=== PATIENT | female | born 1970 | race Caucasian/White ===

== ENCOUNTER → 2024-08-08 06:30 | Outpatient (REF) | payer BC, SELFPAY | LOC: HWWDC 06:30 | PROVIDERS: ATTENDING PHYSICIAN Nurse Practitioner Family | DX: Z12.31 Encounter for screening mammogram for malignant neoplasm of breast (principal) | CPT/HCPCS: 77063; 77067 ==

== ENCOUNTER → 2024-08-23 13:33 | Outpatient (REF) | payer BC, SELFPAY | LOC: RAD 13:33 | PROVIDERS: ATTENDING PHYSICIAN Internal Medicine Gastroenterology; REFERRING PHYSICIAN Nurse Practitioner Family | DX: C18.9 Malignant neoplasm of colon, unspecified (principal) | CPT/HCPCS: 71260; 74177; Q9967 ==

== ENCOUNTER → 2024-08-27 16:46 | Outpatient (REF) | payer SELFPAY | LOC: CLAB 16:46 | PROVIDERS: ATTENDING PHYSICIAN Surgery | DX: C18.9 Malignant neoplasm of colon, unspecified (principal) | CPT/HCPCS: 88305 ==

== ENCOUNTER 2024-08-29 06:18 | Day surgery (SDC) | payer BC, SELFPAY ==
[2024-08-29 07:33] LABS: Glucose - Point of Care 127 mg/dl (70-99)
== END 2024-08-29 09:01 | disposition home or self-care (01) ==
LOC: GI 06:18
PROVIDERS: ATTENDING PHYSICIAN Surgery
DX: Z01.818 Encounter for other preprocedural examination (principal); C18.7 Malignant neoplasm of sigmoid colon; C18.6 Malignant neoplasm of descending colon; K56.691 Other complete intestinal obstruction
CPT/HCPCS: 45330; 82962

== ENCOUNTER 2024-08-30 06:06 | Inpatient (IN) | payer BC, SELFPAY ==
[2024-08-16 10:50] LABS: Hematocrit 35.6 % (37.0-47.0); Hemoglobin 11.6 g/dL (12.0-16.0); Mean Corp Hgb Conc. 32.6 g/dL (33.0-37.0); Mean Corpuscular Hgb 27.2 pg (27.0-31.0); Mean Corpuscular Volume 83.4 fL (81.0-99.0); Platelet Count 274 10^3/uL (130-400); Red Blood Cell Count 4.27 10^6/uL (4.20-5.40); White Blood Cell Count 7.2 10^3/uL (4.8-10.8)
[2024-08-16 11:00] LABS: INR 0.93
[2024-08-16 11:02] LABS: APTT 27.2 Sec (23.4-35.0)
[2024-08-16 11:34] LABS: ALT (SGPT) 17 U/L (0-35); AST (SGOT) 31 U/L (14-36); Albumin 4.6 g/dl (3.5-5.0); Alkaline Phosphatase 128 U/L (38-126); Blood Urea Nitrogen 11 mg/dl (7-17); Calcium 9.2 mg/dl (8.4-10.2); Carbon Dioxide 24 mmol/L (22-30); Chloride 102 mmol/L (98-107); Glucose 152 mg/dl (70-99); Potassium 4.5 mmol/L (3.5-5.1); Sodium 139 mmol/L (135-145); Total Bilirubin 1.1 mg/dl (0.2-1.3); Total Protein 7.4 g/dl (6.3-8.2); eGFR > 60.00
[2024-08-16 11:44] LABS: Glycohemoglobin (HgbA1c) 7.7 % (4.0-5.6)
[2024-08-16 13:18] LABS: CEA 7450 ng/ml
[2024-08-16 13:40] VITALS: BMI 21.8
[2024-08-30] VITALS (14 sets, daily range): BP systolic 96–133; BP diastolic 56–81; BMI 21.8
[2024-08-30 07:05] LABS: Glucose - Point of Care 112 mg/dl (70-99)
[2024-08-30] MEDS: NEURONTIN 600 MG PO (07:07)
[2024-08-30] MEDS: TYLENOL 1000 MG PO (07:07)
[2024-08-30] MEDS: NORMOSOL-R/PLASMALYTE-A 1000 IV ×2 (07:08→15:47)
[2024-08-30] MEDS: ENTEREG 12 MG PO (07:08)
[2024-08-30] MEDS: HEPARIN 5000 UNITS SC (07:09)
--- NOTE | 2024-08-30 12:27 | W.OR.COLCA ---
Addendum entered and electronically signed by Toby Walker MD 08/30/24 17:27:
Correction: below I said Splenic Flexure Resection: Middle and ascending left colic ('left colectomy' with resection of distal descending and descending colon with associated vessels).
This should be changed to: Splenic Flexure Resection: Middle and ascending left colic ('left colectomy' with resection of distal transverse and descending colon with associated vessels)
Original Note:
Colon Cancer Post Op Note
Immediate Post Op
Primary Surgeon: Brynn Walker MD
Assisting Surgeon: JANINE De Oliveira
Pre-op Diagnosis: proximal sigmoid/distal descending colon cancer
Post-op Diagnosis: splenic flexure colon cancer
Procedure Performed: 1) robotic left colectomy 2) takedown splenic flexure
Anesthesia Type: general plus local
Specimen / Cultures: left colon (including distal transverse and descending colon) including tumor with tattoo distal to tumor
Estimated Blood Loss: 150 cc
Complications: no immediate
Operative Findings: 1) large splenic flexure tumor with distal tattooing 2) liver metastases not visible
Colon Resection
Colon Resection
Operation performed with curative intent: No
Tumor Location: Splenic Flexure
Splenic Flexure Resection: Middle and ascending left colic ('left colectomy' with resection of distal descending and descending colon with associated vessels)
[2024-08-30 12:41] LABS: Glucose - Point of Care 173 mg/dl (70-99)
--- NOTE | 2024-08-30 12:46 | W.PN.UPDATE ---
Update Note
Progress Note Update
This is an addendum to consult dictated by Keesha Hernandez on 08/30/2024.
I saw and examined the patient.
The [employer] ATTENDANT or PA's note was reviewed and I agree with the note.
Comment:
Patient 54-year-old female with history of hypertension, hyperlipidemia, diabetes mellitus, came in for elective robotic left colectomy. She is alert but coming out of anesthesia a bit sleepy. Denies any chest pain or shortness of breath. Denies
nausea or vomiting. We were asked to see her in consultation for her medical problems including hypertension hyperlipidemia diabetes mellitus management. She denies any polyuria polyphagia polydipsia. She was referred to hospital service for
evaluation.
Physical exam:
Respiratory: Clear to Auscultation; Negative Wheezes, Rales or Rhonchi
Cardiac: Regular Rhythm and S1/S2
GI: Soft, Nontender and Nondistended
Neuro: Awake, Alert and Oriented
A/P:
Colon mass status post left robotic colectomy/hypertension/diabetes mellitus/hyperlipidemia--> resume home medication, monitor blood pressure, monitor blood sugars. Appreciate the opportunity of asking to be involved in the care of this patient.
[2024-08-30 13:14] LABS: Blood Urea Nitrogen 13 mg/dl (7-17); Calcium 8.1 mg/dl (8.4-10.2); Carbon Dioxide 23 mmol/L (22-30); Chloride 99 mmol/L (98-107); Estimated Creatinine Clearance 102 ml/min; Glucose 179 mg/dl (70-99); Magnesium 2.1 mg/dl (1.6-2.3); Potassium 4.1 mmol/L (3.5-5.1); Sodium 134 mmol/L (135-145); eGFR > 60.00
--- NOTE | 2024-08-30 13:35 | CON.HOSP ---
Family Physician
-
Family Physician: RUKHSANA Ramachandran
Chief Complaint
-
Splenic flexure tumor status post left colectomy today 08/30/2024
History of Present Illness
54-year-old female status post robotic left colectomy, takedown splenic flexure for large splenic flexure tumor concerning for colon cancer. With distal tattooing. Liver metastases were not visible on robotic procedure per surgery postop note
Aaron.
The patient is currently awake alert oriented with no pain. Her surgical sites across the mid to right side of her abdomen are intact no surrounding erythema or drainage. She is a Barry catheter draining yellow in color. She denies headache,
blurred vision, chest pain, palpitations, shortness of breath, abdominal pain, nausea, vomiting, diarrhea. She has past medical history of hypertension, HLD, DM2.
Medical History
Past Medical History
Past Medical History: Reports Other
Additional Past Medical History:
hypertension, HLD, DM2.
Past Surgical History: Reports Other
Additional Past Surgical History:
Status post left robotic colectomy 08/30/2024 for splenic flexure tumor
Social History
Tobacco: Non-smoker
Alcohol: None
Drug: None
Personal: Single
Living: Alone
Family History
Family History: Reviewed & Not Pertinent
Allergies / Home Medications
Allergies reflects when Allergies were last updated in [facility].
Home Medications with original date entered in [facility]
Allergy/Medication List:
Allergies
Allergy/AdvReac Type Severity Reaction Status Date / Time
No Known Allergies Allergy Unverified 08/30/24 06:46
Home Medications
acetaminophen 325 mg tablet (Tylenol) 650 mg PO QID PRN pain 08/23/24
dulaglutide 1.5 mg/0.5 mL subcutaneous pen injector (Trulicity) 1.5 mg SC QWEEK 08/23/24
empagliflozin 25 mg tablet (Jardiance) 25 mg PO DAILY 08/23/24
metronidazole 500 mg tablet 500 mg PO DIRECTED 08/23/24
neomycin 500 mg tablet 1,000 mg PO DIRECTED 08/23/24
olmesartan 40 mg tablet 40 mg PO DAILY 08/23/24
rosuvastatin 5 mg tablet 5 mg PO DAILY 08/23/24
peg-electrolyte oral solution 240 ml PO Q10M 08/30/24
Review of Systems
-
History Source: Patient
A 12 point Review of Systems was completed except as noted: Yes
Constitutional: Denies Fever or Chills
EENT: Denies Sore Throat or Runny Nose
Respiratory: Denies Cough or Trouble Breathing
Cardiac: Denies Chest Pain, Diaphoresis, Palpitations or Syncope
Abdomen/GI: Denies Abdominal Pain, Nausea, Vomiting, Diarrhea, Constipated or Bloody Stools
: Reports Barry
Musculoskeletal: Denies Joint Pain or Edema
Skin: Denies Itching or Rash
Neurological: Denies Dizzy, Headache or Weakness
Endocrine: Reports No Symptoms
Hematologic/Lymphatic: Reports No Symptoms
Psych: Reports Calm
Physical Exam
Vital Signs
Vital Signs
Temp Pulse Resp BP Pulse Ox
98.3 F 88 18 118/74 97
08/30/24 12:33 08/30/24 13:30 08/30/24 13:30 08/30/24 13:30 08/30/24 13:30
Physical Exam
General: Comfortable; Negative Pain
HEENT: Normocephalic, Anicteric, Moist Mucous Membranes and PERRLA
Respiratory: Clear; Negative Wheezes, Rales or Rhonchi
Cardiac: S1/S2 and Regular Rhythm; Negative Murmur, Rub, Peripheral Edema or Calf Tenderness
Breast: Deferred by me
GI: Soft, Normal Bowel Sounds, Distended (Slight status post left robotic colectomy) and Other (Multiple robotic surgical incisions mid abdomen to the right intact with Dermabond on each 1 no surrounding erythema or drainage)
Genito-urinary: Barry Catheter (Draining yellow in color)
Musculoskeletal: No Clubbing, No Cyanosis and No Edema
Skin: Warm and Dry; Negative Rash
Neuro: AO x 3 and No Motor Deficits; Negative Slurred Speech, Facial Droop, Tremors or Sedated
Psych: Calm
Laboratory Results
-
Laboratory Results
08/30/24 12:44
PT 13.0 Sec (11.4-14.6) 08/16/24 08:48
INR 0.93 08/16/24 08:48
APTT 27.2 Sec (23.4-35.0) 08/16/24 08:48
Total Bilirubin 1.1 mg/dl (0.2-1.3) 08/16/24 08:48
AST 31 U/L (14-36) 08/16/24 08:48
ALT 17 U/L (0-35) 08/16/24 08:48
Alkaline Phosphatase 128 U/L (38-126) H 08/16/24 08:48
Data Reviewed
-
Lab Data: Labs Reviewed
Impression / Plan
-
Medical consultation
inpatient MedSurg
#Large splenic fracture tumor with possible mets to liver
Patient status post left robotic colectomy with takedown splenic flexure by Dr. Walker
-Continue IV fluids
-Continue pain control regimen with IV Dilaudid, IV Toradol, IV Protonix, IV Zofran
-Clear liquid diet
-Follow CBC, CMP
#DM2
Accu-Cheks with SSI, check HgbA1c
-cont Jardiance 25 mg daily
-Patient on Trulicity 1.5 mg last dose July 29
#HTN�benign
-Continue olmesartan 40 mg daily patient has not taken since 08/27/2024
#HLD
-Continue Crestor 5 mg daily
DVT prophylaxis
Subcutaneous heparin
Full code patient's Sister Belinda Linares is her emergency contact patient does have 1 daughter
[2024-08-30 13:49] LABS: Hematocrit 31.9 % (37.0-47.0); Hemoglobin 10.2 g/dL (12.0-16.0); Mean Corpuscular Hgb 26.8 pg (27.0-31.0); Mean Corpuscular Volume 83.9 fL (81.0-99.0); Mean Platelet Volume 8.9 fL (7.4-10.4); Platelet Count 279 10^3/uL (130-400); Red Cell Dist. Width 13.8 % (11.5-14.5); White Blood Cell Count 9.9 10^3/uL (4.8-10.8)
[2024-08-30] MEDS: TORADOL 10 MG IV ×2 (14:27→19:52)
[2024-08-30 14:43] LABS: % Basophils 0.3 % (0-2); % Eosinophils 0.2 % (0-6); % Immature Granulocytes 0.6 % (0-0.5); % Lymphocytes 6.5 % (20.5-51.1); % Monocytes 1.7 % (1.7-9.3); % Neutrophils 90.7 % (42.2-75.2); Absolute Immature Granulocytes 0.1 10^3/uL (0-0.05); Absolute Lymphocytes 0.7 10^3/uL (1.2-3.4); Absolute Monocytes 0.2 10^3/uL (0.1-0.6); Nucleated Red Blood Cells % 0 %
[2024-08-30] MEDS: TYLENOL 650 MG PO ×2 (15:53→19:53)
--- NOTE | 2024-08-30 16:30 | PTCARENOTE ---
Patient admitted from PACU post robotic laparoscopic sigmoidectomy secondary to colon cancer.Vital signs are stable.The patient reports her pain at a 1-2 out of 10.All 4 incisions are open to air without drainage.The patient is in her bed with the
call ahumada in reach.Her family members are at the bedside.
[2024-08-30 17:26] LABS: Glucose - Point of Care 214 mg/dl (70-99)
[2024-08-30] MEDS: NOVOLOG FLEXPEN-LOW RESISTANCE 2 UNITS SC (19:50)
[2024-08-30 19:51] LABS: Glucose - Point of Care 207 mg/dl (70-99)
[2024-08-30 22:03] LABS: Glucose - Point of Care 178 mg/dl (70-99)
[2024-08-30] MEDS: TYLENOL PO (23:41)
[2024-08-31] MEDS: TORADOL 10 MG IV ×4 (02:03→19:32)
[2024-08-31] MEDS: NORMOSOL-R/PLASMALYTE-A 1000 IV (02:07)
[2024-08-31 03:52] VITALS: BP 99/55
[2024-08-31] MEDS: TYLENOL PO (05:08)
[2024-08-31 06:00] VITALS: BMI 21.6
[2024-08-31 06:51] VITALS: BP 100/60
[2024-08-31 08:01] LABS: Glucose - Point of Care 125 mg/dl (70-99)
[2024-08-31] MEDS: NOVOLOG FLEXPEN-LOW RESISTANCE SC ×3 (08:26→17:23)
[2024-08-31] MEDS: BENICAR 40 MG PO (08:26)
[2024-08-31] MEDS: FARXIGA 10 MG PO (08:27)
[2024-08-31] MEDS: ENTEREG 12 MG PO ×2 (08:27→19:32)
[2024-08-31] MEDS: TYLENOL 650 MG PO ×4 (08:27→19:32)
[2024-08-31] MEDS: CRESTOR 5 MG PO (08:27)
[2024-08-31] MEDS: PROTONIX 40 MG PO (08:27)
[2024-08-31 08:48] LABS: % Basophils 0.4 % (0-2); % Eosinophils 0.3 % (0-6); % Immature Granulocytes 0.3 % (0-0.5); % Lymphocytes 21.1 % (20.5-51.1); % Monocytes 8.6 % (1.7-9.3); % Neutrophils 69.3 % (42.2-75.2); Absolute Lymphocytes 1.6 10^3/uL (1.2-3.4); Absolute Monocytes 0.7 10^3/uL (0.1-0.6); Absolute Neutrophils 5.4 10^3/uL (1.4-6.5); Hematocrit 26.5 % (37.0-47.0); Hemoglobin 8.8 g/dL (12.0-16.0); Mean Corp Hgb Conc. 33.2 g/dL (33.0-37.0); Mean Corpuscular Hgb 27.3 pg (27.0-31.0); Mean Corpuscular Volume 82.3 fL (81.0-99.0); Mean Platelet Volume 9.8 fL (7.4-10.4); Nucleated Red Blood Cells % 0 %; Platelet Count 225 10^3/uL (130-400); Red Blood Cell Count 3.22 10^6/uL (4.20-5.40); Red Cell Dist. Width 13.8 % (11.5-14.5); White Blood Cell Count 7.7 10^3/uL (4.8-10.8)
--- NOTE | 2024-08-31 09:04 | W.PN.HOSP.TC ---
Today's Communication/Plan
-
Postop care
Assessment / Plan
Assessment / Plan
Physical exam:
General: Well Developed, Well Nourished and No Apparent Distress
HEENT: Normocephalic, Atraumatic and Moist Mucous Membranes
Respiratory: Clear to Auscultation; Negative Wheezes, Rales or Rhonchi
Cardiac: Regular Rhythm and S1/S2
GI: Soft, postop findings, nontender and Nondistended
Musculoskeletal: No Clubbing, No Cyanosis and No Edema
Neuro: Awake, Alert and Oriented
Psych: Calm
A/P:
#Large splenic fracture tumor with possible mets to liver
Patient status post left robotic colectomy with takedown splenic flexure by Dr. Walker
-Planning to stop IV fluids when tolerating diet per surgery
-Continue pain control regimen with IV Dilaudid, IV Toradol, IV Protonix, IV Zofran
-Advance to full liquid diet per colorectal surgeon
-Out of bed, incentive spirometry, Barry catheter out
#Probable acute blood loss postop anemia versus dilutional
Hemoglobin 10.2--> 8.8 today
Plan on repeating hemoglobin later today
Continue to monitor closely
#DM2
Accu-Cheks with SSI, checked HgbA1c 7.7
-cont Jardiance 25 mg daily
-Patient on Trulicity 1.5 mg last dose July 29
#HTN�benign
-Continue olmesartan 40 mg daily patient has not taken since 08/27/2024
#HLD
-Continue Crestor 5 mg daily
DVT prophylaxis
SCDs and considering Lovenox if H&H stable later down the road
CODE STATUS full code
Anticipated Discharge: 24 - 48 hours
Subjective/Interval History
-
Date of Service: August 31, 2024
Patient doing well overall. No chest pain or shortness of breath
Objective Data
-
Labs:
Laboratory Results
08/31/24
08:06
WBC 7.7
Hgb 8.8 L
Hct 26.5 L
Plt Count 225
Sodium Pending
Potassium Pending
Chloride Pending
Carbon Dioxide Pending
BUN Pending
Creatinine Pending
Glucose Pending
Calcium Pending
Vital Signs:
Vital Signs
Temp Pulse Resp BP Pulse Ox
98.6 F 72 16 100/60 98
08/31/24 06:51 08/31/24 06:51 08/31/24 06:51 08/31/24 06:51 08/31/24 06:51
I&O
08/30/24 08/31/24 09/01/24
06:59 06:59 06:59
Intake Total 1919
Output Total 1400 / 1400
Balance 520 / 520
[2024-08-31 09:29] LABS: Blood Urea Nitrogen 12 mg/dl (7-17); Calcium 8.2 mg/dl (8.4-10.2); Carbon Dioxide 26 mmol/L (22-30); Chloride 102 mmol/L (98-107); Estimated Creatinine Clearance 102 ml/min; Glucose 111 mg/dl (70-99); Magnesium 2.3 mg/dl (1.6-2.3); Potassium 3.7 mmol/L (3.5-5.1); Sodium 134 mmol/L (135-145); eGFR > 60.00
--- NOTE | 2024-08-31 09:51 | W.PN.CRS1 ---
Today's Communication / Plan
-
Full liquid diet
DC Barry
Recheck hemoglobin
Assessment/Plan
-
POD#1 1) robotic left colectomy 2) takedown splenic flexure
hgb 8.8 from 10.2, wbc 7.7
-Advance diet to full's
-Discontinue Barry
-Out of bed with physical therapy
-Incentive spirometry every 1 hours while awake
-Or pathology pending
-DC IV fluids when tolerating diet
-Due to anemia, which is likely delusional, will recheck hemoglobin at noon.
-Teds and SCDs for DVT prophylaxis. Possible Lovenox later if H&H is stable.
-Appreciate hospitalist
-Pain control: Tylenol and Toradol standing, Dilaudid as needed
Subjective Data
Procedure
08/30/24- 1) robotic left colectomy 2) takedown splenic flexure
Subjective Data
Date of Service: August 31, 2024
Patient states she feels well. She currently has no complaints. She would like to get a bed. Her pain is controlled. She denies nausea or vomiting. She tolerated clears without difficulty. She does not have flatus yet.
Objective Data
-
Vital Signs
Temp Pulse Resp BP Pulse Ox
98.6 F 72 16 100/60 98
08/31/24 06:51 08/31/24 06:51 08/31/24 06:51 08/31/24 06:51 08/31/24 06:51
Intake & Output
08/30/24 08/31/24 09/01/24
06:59 06:59 06:59
Intake Total 1919 / 192
Output Total 1400 / 1400
Balance 520 / 520
Intake:
Oral fluids 420 / 420
IV fluids (Total) 1500 / 1500
Normosal 300 / 300
Output:
Urine, Barry 1400 / 1400
Lab Results
08/31/24 08:06
Physical Exam
-
General: No Acute Distress and AOx3
Abdomen: Soft, Non Distended and Non Tender
Skin: Warm and Dry
Incision: Clear, Dry, Intact
[2024-08-31 11:34] VITALS: BP 109/59
[2024-08-31 11:52] LABS: Glucose - Point of Care 96 mg/dl (70-99)
--- NOTE | 2024-08-31 11:56 | CM ---
Initial assessment completed. Came in for elective robotic left colectomy.
Pt reports that she lives alone in a 2nd flr apartment- 10 steps to her apartment. Pt reports she is independent w/ ambulating and ADLs, no DME identified. Pt denies any SNF/VN/PT hx.
Address, point of contact and insurance verified
PCP: Dr. Li Gramajo
Pharmacy: [id number]- [place]
Pt shared her daughter will transport at d/c
Plan: Home; no needs anticipated
CM will cont to follow for d/c needs
[2024-08-31 12:28] LABS: Hematocrit 28.6 % (37.0-47.0); Hemoglobin 9.5 g/dL (12.0-16.0)
[2024-08-31 14:45] VITALS: BP 104/55
[2024-08-31] MEDS: NORMOSOL-R/PLASMALYTE-A IV (14:54)
[2024-08-31 17:22] LABS: Glucose - Point of Care 148 mg/dl (70-99)
[2024-08-31] MEDS: LOVENOX 40 MG SC (17:23)
[2024-08-31 23:57] VITALS: BP 106/60
[2024-09-01] MEDS: TYLENOL PO ×2 (01:38→05:13)
[2024-09-01] MEDS: TORADOL 10 MG IV ×3 (02:13→13:41)
[2024-09-01 06:00] VITALS: BMI 21.5
[2024-09-01 07:30] VITALS: BP 95/55
[2024-09-01 07:33] LABS: Glucose - Point of Care 88 mg/dl (70-99)
[2024-09-01 07:46] LABS: % Basophils 0.5 % (0-2); % Eosinophils 3.4 % (0-6); % Immature Granulocytes 0.3 % (0-0.5); % Lymphocytes 17.8 % (20.5-51.1); % Monocytes 7.4 % (1.7-9.3); % Neutrophils 70.6 % (42.2-75.2); Absolute Eosinophils 0.3 10^3/uL (0-0.7); Absolute Lymphocytes 1.4 10^3/uL (1.2-3.4); Absolute Monocytes 0.6 10^3/uL (0.1-0.6); Absolute Neutrophils 5.5 10^3/uL (1.4-6.5); Hematocrit 26.2 % (37.0-47.0); Hemoglobin 8.6 g/dL (12.0-16.0); Mean Corp Hgb Conc. 32.8 g/dL (33.0-37.0); Mean Corpuscular Hgb 27.2 pg (27.0-31.0); Mean Corpuscular Volume 82.9 fL (81.0-99.0); Mean Platelet Volume 9.9 fL (7.4-10.4); Nucleated Red Blood Cells % 0 %; Platelet Count 210 10^3/uL (130-400); Red Blood Cell Count 3.16 10^6/uL (4.20-5.40); Red Cell Dist. Width 14.1 % (11.5-14.5); White Blood Cell Count 7.8 10^3/uL (4.8-10.8)
[2024-09-01 08:07] LABS: Blood Urea Nitrogen 15 mg/dl (7-17); Calcium 8.5 mg/dl (8.4-10.2); Carbon Dioxide 24 mmol/L (22-30); Chloride 104 mmol/L (98-107); Estimated Creatinine Clearance 102 ml/min; Glucose 84 mg/dl (70-99); Potassium 3.9 mmol/L (3.5-5.1); Sodium 137 mmol/L (135-145); eGFR > 60.00
[2024-09-01] MEDS: NOVOLOG FLEXPEN-LOW RESISTANCE SC ×2 (08:49→12:30)
[2024-09-01] MEDS: CRESTOR 5 MG PO (08:50)
[2024-09-01] MEDS: ENTEREG 12 MG PO (08:50)
[2024-09-01] MEDS: TYLENOL 650 MG PO ×2 (08:51→13:41)
[2024-09-01] MEDS: PROTONIX 40 MG PO (08:56)
[2024-09-01] MEDS: BENICAR 40 MG PO (08:56)
[2024-09-01] MEDS: FARXIGA 10 MG PO (08:56)
--- NOTE | 2024-09-01 09:01 | W.PN.GS2 ---
Today's Communication / Plan
-
Dispo plan
Assessment / Plan
-
This is a 54-year-old female status post robotic left colectomy for colon cancer. Doing well, expected postoperative course.
Will advance to a low residue diet.
Will plan on discharging home today
Time Spent
Total Time Spent with Patient (in minutes): 20
Subjective Data
-
Date of Service: September 01, 2024
Interval Events:
No acute events overnight. Slept well. Pain Controlled. Denies Nausea/Vomiting, +bowel function. Tolerating diet.
Objective Data
-
Intake and Output
08/31/24 09/01/24 09/02/24
06:59 06:59 06:59
Intake Total 1920 / 1920 1120 / 1120
Output Total 1400 / 1400 800 / 800
Balance 520 / 520 320 / 320
Intake:
Oral fluids 420 / 420 480 / 480
IV fluids (Total) 1500 / 1500 640 / 640
Normosal 300 / 300
Output:
Urine, Plascencia 1400 / 1400 800 / 800
Other:
Number of approximated MODERATE 2
amounts of urine
Number of unmeasured liquid
stools
Rectum 2
Vital Signs
Temp Pulse Resp BP Pulse Ox
98.1 F 73 18 95/55 96
09/01/24 07:30 09/01/24 07:30 09/01/24 07:30 09/01/24 07:30 09/01/24 07:30
Lab Results
09/01/24 06:46
09/01/24 06:46
Calcium 8.5 mg/dl (8.4-10.2) 09/01/24 06:46
Magnesium 2.3 mg/dl (1.6-2.3) 08/31/24 08:06
Total Bilirubin 1.1 mg/dl (0.2-1.3) 08/16/24 08:48
AST 31 U/L (14-36) 08/16/24 08:48
ALT 17 U/L (0-35) 08/16/24 08:48
Alkaline Phosphatase 128 U/L (38-126) H 08/16/24 08:48
Total Protein 7.4 g/dl (6.3-8.2) 08/16/24 08:48
Albumin 4.6 g/dl (3.5-5.0) 08/16/24 08:48
Physical Exam
-
GENERAL/NEURO: Awake, Alert, no distress
CHEST: Unlabored breathing on RA
ABDOMEN: Soft, Non-Tender, Non-Distended, incisions clean dry and intact
Patient has a plascencia catheter: No
Patient has a central line: No
--- NOTE | 2024-09-01 09:24 | W.PN.HOSP.TC ---
Today's Communication/Plan
-
Discharge planning
Assessment / Plan
Assessment / Plan
Physical exam:
General: Well Developed, Well Nourished and No Apparent Distress
HEENT: Normocephalic, Atraumatic and Moist Mucous Membranes
Respiratory: Clear to Auscultation; Negative Wheezes, Rales or Rhonchi
Cardiac: Regular Rhythm and S1/S2
GI: Soft, postop findings, nontender and Nondistended
Musculoskeletal: No Clubbing, No Cyanosis and No Edema
Neuro: Awake, Alert and Oriented
Psych: Calm
A/P:
#Large splenic fracture tumor with possible mets to liver
Patient status post left robotic colectomy with takedown splenic flexure by Dr. Walker
-Off IV fluids
-Continue pain control regimen with IV Dilaudid, IV Toradol, IV Protonix, IV Zofran
-Advance to low residue diet per colorectal surgeon
-Out of bed, incentive spirometry, Barry catheter out
-Discharge planning per surgery. Okay to discharge from medical standpoint when cleared by primary.
#Probable acute blood loss postop anemia versus dilutional
Hemoglobin 10.2--> 8.8-->8.6 today
#DM2
Accu-Cheks with SSI, checked HgbA1c 7.7
-cont Jardiance 25 mg daily
-Patient on Trulicity 1.5 mg last dose July 29
#HTN�benign
-Continue olmesartan 40 mg daily patient has not taken since 08/27/2024
#HLD
-Continue Crestor 5 mg daily
DVT prophylaxis
SCDs and Lovenox
CODE STATUS full code
Anticipated Discharge: Today
Subjective/Interval History
-
Date of Service: September 01, 2024
No new complaints
Objective Data
-
Labs:
Laboratory Results
09/01/24
06:46
WBC 7.8
Hgb 8.6 L
Hct 26.2 L
Plt Count 210
Sodium 137
Potassium 3.9
Chloride 104
Carbon Dioxide 24
BUN 15
Creatinine 0.5 L
Glucose 84
Calcium 8.5
Vital Signs:
Vital Signs
Temp Pulse Resp BP Pulse Ox
98.1 F 73 18 95/55 96
09/01/24 07:30 09/01/24 07:30 09/01/24 07:30 09/01/24 07:30 09/01/24 07:30
I&O
08/31/24 09/01/24 09/02/24
06:59 06:59 06:59
Intake Total 1919 / 1919 1120 / 1120
Output Total 1400 / 1400 800 / 800
Balance 520 / 520 320 / 320
[2024-09-01 11:37] LABS: Glucose - Point of Care 91 mg/dl (70-99)
[2024-09-01 14:59] VITALS: BP 137/63
== END 2024-09-01 15:31 | disposition home or self-care (01) | DRG 330 ==
LOC: 2 SOUTH 06:06
PROVIDERS: Physician Assistant; ADMITTING PHYSICIAN Surgery; CONSULT PHYSICIAN Hospitalist; FAMILY PHYSICIAN Nurse Practitioner Family
PROC: 8E0W4CZ Robotic Assisted Procedure of Trunk Region, Percutaneous Endoscopic Approach (ICD-10-PCS; 2024-08-30)
PROC: 0DTG4ZZ Resection of Left Large Intestine, Percutaneous Endoscopic Approach (ICD-10-PCS; 2024-08-30)
DX: C18.5 Malignant neoplasm of splenic flexure (principal); C78.7 Secondary malignant neoplasm of liver and intrahepatic bile duct; D62 Acute posthemorrhagic anemia; C77.2 Secondary and unspecified malignant neoplasm of intra-abdominal lymph nodes; E11.9 Type 2 diabetes mellitus without complications; E78.5 Hyperlipidemia, unspecified; I10 Essential (primary) hypertension
CPT/HCPCS: 88309; 36415; 80048; 80053; 82378; 82962; 83036; 83735; 85014; 85018; 85025; 85027; 85610; 85730; 86850; 86900; 86901; 93005; J1335

== ENCOUNTER 2024-09-19 06:15 | Day surgery (SDC) | payer BC, SELFPAY ==
--- NOTE | 2024-09-17 13:19 | PTCARENOTE ---
Jacquelyn in Dr. Walker's office made aware of Hgb 8.6.
--- NOTE | 2024-09-17 13:26 | PTCARENOTE ---
Dr. Dubose made aware of Hgb 8.6, no further action requested.
[2024-09-19 11:41] VITALS: BMI 21.8
[2024-09-19 11:42] VITALS: BP 109/75; BMI 21.8
[2024-09-19 11:58] LABS: Glucose - Point of Care 169 mg/dl (70-99)
[2024-09-19] MEDS: NORMOSOL-R/PLASMALYTE-A 1000 IV (12:03)
[2024-09-19 14:53] LABS: Glucose - Point of Care 142 mg/dl (70-99)
[2024-09-19 16:17] VITALS: BP 113/61
[2024-09-19 16:30] VITALS: BP 116/61
[2024-09-19 16:45] VITALS: BP 112/64
== END 2024-09-19 17:21 | disposition home or self-care (01) ==
LOC: SDS 06:15
PROVIDERS: ATTENDING PHYSICIAN Surgery
DX: C18.7 Malignant neoplasm of sigmoid colon (principal); C78.7 Secondary malignant neoplasm of liver and intrahepatic bile duct
CPT/HCPCS: 36561; 71045; 76000; 82962; C1788

== ENCOUNTER → 2024-09-24 11:53 | Outpatient (REF) | payer BC, SELFPAY ==
[2024-09-24 11:20] LABS: % Basophils 0.4 % (0-2); % Immature Granulocytes 0.1 % (0-0.5); % Lymphocytes 15.4 % (20.5-51.1); % Monocytes 6.2 % (1.7-9.3); % Neutrophils 74.9 % (42.2-75.2); Absolute Eosinophils 0.2 10^3/uL (0-0.7); Absolute Lymphocytes 1.2 10^3/uL (1.2-3.4); Absolute Monocytes 0.5 10^3/uL (0.1-0.6); Absolute Neutrophils 5.7 10^3/uL (1.4-6.5); Hematocrit 33.5 % (37.0-47.0); Hemoglobin 10.7 g/dL (12.0-16.0); Mean Corp Hgb Conc. 31.9 g/dL (33.0-37.0); Mean Corpuscular Hgb 26.3 pg (27.0-31.0); Mean Corpuscular Volume 82.3 fL (81.0-99.0); Mean Platelet Volume 9.7 fL (7.4-10.4); Platelet Count 329 10^3/uL (130-400); Red Blood Cell Count 4.07 10^6/uL (4.20-5.40); Red Cell Dist. Width 13.8 % (11.5-14.5); White Blood Cell Count 7.6 10^3/uL (4.8-10.8)
[2024-09-24 12:56] LABS: ALT (SGPT) 18 U/L (0-35); AST (SGOT) 31 U/L (14-36); Albumin 4.4 g/dl (3.5-5.0); Alkaline Phosphatase 181 U/L (38-126); Blood Urea Nitrogen 12 mg/dl (7-17); Calcium 9.7 mg/dl (8.4-10.2); Carbon Dioxide 24 mmol/L (22-30); Chloride 103 mmol/L (98-107); Glucose 290 mg/dl (70-99); Potassium 4.6 mmol/L (3.5-5.1); Sodium 142 mmol/L (135-145); Total Bilirubin 0.9 mg/dl (0.2-1.3); Total Protein 7.5 g/dl (6.3-8.2); eGFR > 60.00
== END ==
LOC: OIDL 11:53
PROVIDERS: ATTENDING PHYSICIAN Internal Medicine Hematology & Oncology
DX: C18.7 Malignant neoplasm of sigmoid colon (principal)
CPT/HCPCS: 80053; 85025

== ENCOUNTER → 2024-10-05 09:05 | Outpatient (REF) | payer BC, SELFPAY ==
[2024-10-05 09:09] LABS: % Basophils 0.3 % (0-2); % Immature Granulocytes 0.1 % (0-0.5); % Lymphocytes 16.1 % (20.5-51.1); % Neutrophils 64.5 % (42.2-75.2); Absolute Lymphocytes 1.4 10^3/uL (1.2-3.4); Absolute Monocytes 0.7 10^3/uL (0.1-0.6); Absolute Neutrophils 5.6 10^3/uL (1.4-6.5); Hematocrit 32.3 % (37.0-47.0); Hemoglobin 10.6 g/dL (12.0-16.0); Mean Corp Hgb Conc. 32.8 g/dL (33.0-37.0); Mean Corpuscular Hgb 26.6 pg (27.0-31.0); Mean Corpuscular Volume 81.2 fL (81.0-99.0); Mean Platelet Volume 9.3 fL (7.4-10.4); Platelet Count 290 10^3/uL (130-400); Red Blood Cell Count 3.98 10^6/uL (4.20-5.40); Red Cell Dist. Width 13.4 % (11.5-14.5); White Blood Cell Count 8.7 10^3/uL (4.8-10.8)
== END ==
LOC: OIDL 09:05
PROVIDERS: Internal Medicine Hematology & Oncology
DX: C18.7 Malignant neoplasm of sigmoid colon (principal); C78.7 Secondary malignant neoplasm of liver and intrahepatic bile duct; D50.9 Iron deficiency anemia, unspecified
CPT/HCPCS: 85025

== ENCOUNTER → 2024-10-15 09:36 | Outpatient (REF) | payer BC, SELFPAY ==
[2024-10-15 09:42] LABS: % Basophils 1.2 % (0-2); % Eosinophils 3.5 % (0-6); % Immature Granulocytes 0.3 % (0-0.5); % Lymphocytes 19.2 % (20.5-51.1); % Monocytes 10.4 % (1.7-9.3); % Neutrophils 65.4 % (42.2-75.2); Absolute Basophils 0.1 10^3/uL (0-0.2); Absolute Eosinophils 0.2 10^3/uL (0-0.7); Absolute Lymphocytes 1.1 10^3/uL (1.2-3.4); Absolute Monocytes 0.6 10^3/uL (0.1-0.6); Absolute Neutrophils 3.8 10^3/uL (1.4-6.5); Hematocrit 36.2 % (37.0-47.0); Hemoglobin 12.1 g/dL (12.0-16.0); Mean Corp Hgb Conc. 33.4 g/dL (33.0-37.0); Mean Corpuscular Hgb 27.7 pg (27.0-31.0); Mean Corpuscular Volume 82.8 fL (81.0-99.0); Mean Platelet Volume 9.3 fL (7.4-10.4); Platelet Count 223 10^3/uL (130-400); Red Blood Cell Count 4.37 10^6/uL (4.20-5.40); Red Cell Dist. Width 17.8 % (11.5-14.5); White Blood Cell Count 5.8 10^3/uL (4.8-10.8)
[2024-10-15 10:30] LABS: ALT (SGPT) 20 U/L (0-35); AST (SGOT) 20 U/L (14-36); Albumin 3.9 g/dl (3.5-5.0); Alkaline Phosphatase 178 U/L (38-126); Blood Urea Nitrogen 12 mg/dl (7-17); Calcium 9.3 mg/dl (8.4-10.2); Carbon Dioxide 25 mmol/L (22-30); Chloride 106 mmol/L (98-107); Glucose 322 mg/dl (70-99); Sodium 141 mmol/L (135-145); Total Bilirubin 0.7 mg/dl (0.2-1.3); Total Protein 6.6 g/dl (6.3-8.2); eGFR > 60.00
== END ==
LOC: OIDL 09:36
PROVIDERS: ATTENDING PHYSICIAN Internal Medicine Hematology & Oncology
DX: C18.7 Malignant neoplasm of sigmoid colon (principal)
CPT/HCPCS: 80053; 85025

== ENCOUNTER → 2024-11-05 08:18 | Outpatient (REF) | payer BC, SELFPAY ==
[2024-11-05 09:20] LABS: % Basophils 0.6 % (0-2); % Eosinophils 9.8 % (0-6); % Immature Granulocytes 0.4 % (0-0.5); % Lymphocytes 23.6 % (20.5-51.1); % Monocytes 11.2 % (1.7-9.3); % Neutrophils 54.4 % (42.2-75.2); Absolute Eosinophils 0.5 10^3/uL (0-0.7); Absolute Lymphocytes 1.2 10^3/uL (1.2-3.4); Absolute Monocytes 0.6 10^3/uL (0.1-0.6); Absolute Neutrophils 2.8 10^3/uL (1.4-6.5); Hematocrit 35.9 % (37.0-47.0); Mean Corp Hgb Conc. 33.4 g/dL (33.0-37.0); Mean Corpuscular Hgb 28.8 pg (27.0-31.0); Mean Corpuscular Volume 86.1 fL (81.0-99.0); Mean Platelet Volume 9.1 fL (7.4-10.4); Nucleated Red Blood Cells % 0 %; Platelet Count 180 10^3/uL (130-400); Red Blood Cell Count 4.17 10^6/uL (4.20-5.40); Red Cell Dist. Width 22.1 % (11.5-14.5); White Blood Cell Count 5.2 10^3/uL (4.8-10.8)
[2024-11-05 09:45] LABS: ALT (SGPT) 28 U/L (0-35); AST (SGOT) 28 U/L (14-36); Albumin 4.2 g/dl (3.5-5.0); Alkaline Phosphatase 112 U/L (38-126); Blood Urea Nitrogen 11 mg/dl (7-17); Calcium 9.8 mg/dl (8.4-10.2); Carbon Dioxide 25 mmol/L (22-30); Chloride 108 mmol/L (98-107); Glucose 133 mg/dl (70-99); Potassium 4.4 mmol/L (3.5-5.1); Sodium 143 mmol/L (135-145); Total Bilirubin 1.2 mg/dl (0.2-1.3); Total Protein 6.7 g/dl (6.3-8.2); eGFR > 60.00
== END ==
LOC: REG 08:18
PROVIDERS: ATTENDING PHYSICIAN Internal Medicine Hematology & Oncology
DX: C18.7 Malignant neoplasm of sigmoid colon (principal); C78.7 Secondary malignant neoplasm of liver and intrahepatic bile duct; D50.9 Iron deficiency anemia, unspecified
CPT/HCPCS: 36415; 80053; 85025

== ENCOUNTER → 2024-11-26 07:55 | Outpatient (REF) | payer BC, SELFPAY ==
[2024-11-26 08:36] LABS: % Basophils 0.6 % (0-2); % Eosinophils 6.7 % (0-6); % Immature Granulocytes 0.4 % (0-0.5); % Lymphocytes 25.2 % (20.5-51.1); % Monocytes 12.7 % (1.7-9.3); % Neutrophils 54.4 % (42.2-75.2); Absolute Eosinophils 0.3 10^3/uL (0-0.7); Absolute Lymphocytes 1.2 10^3/uL (1.2-3.4); Absolute Monocytes 0.6 10^3/uL (0.1-0.6); Absolute Neutrophils 2.5 10^3/uL (1.4-6.5); Hematocrit 36.9 % (37.0-47.0); Hemoglobin 12.8 g/dL (12.0-16.0); Mean Corp Hgb Conc. 34.7 g/dL (33.0-37.0); Mean Corpuscular Hgb 30.2 pg (27.0-31.0); Mean Platelet Volume 9.1 fL (7.4-10.4); Nucleated Red Blood Cells % 0 %; Platelet Count 229 10^3/uL (130-400); Red Blood Cell Count 4.24 10^6/uL (4.20-5.40); Red Cell Dist. Width 23.5 % (11.5-14.5); White Blood Cell Count 4.6 10^3/uL (4.8-10.8)
[2024-11-26 09:09] LABS: ALT (SGPT) 21 U/L (0-35); AST (SGOT) 24 U/L (14-36); Albumin 4.1 g/dl (3.5-5.0); Alkaline Phosphatase 92 U/L (38-126); Blood Urea Nitrogen 5 mg/dl (7-17); Calcium 9.4 mg/dl (8.4-10.2); Carbon Dioxide 25 mmol/L (22-30); Chloride 108 mmol/L (98-107); Glucose 159 mg/dl (70-99); Potassium 3.8 mmol/L (3.5-5.1); Sodium 142 mmol/L (135-145); Total Bilirubin 1.7 mg/dl (0.2-1.3); Total Protein 6.4 g/dl (6.3-8.2); eGFR > 60.00
[2024-11-26 10:10] LABS: Anisocytosis 1+; Normal RBC Morphology No
[2024-11-26 10:11] LABS: Hypochromasia 1+; Ovalocytes 1+; Polychromasia 1+
== END ==
LOC: REG 07:55
PROVIDERS: ATTENDING PHYSICIAN Internal Medicine Hematology & Oncology; FAMILY PHYSICIAN Nurse Practitioner Family
DX: C18.7 Malignant neoplasm of sigmoid colon (principal); C78.7 Secondary malignant neoplasm of liver and intrahepatic bile duct; D50.9 Iron deficiency anemia, unspecified
CPT/HCPCS: 36415; 80053; 85025

== ENCOUNTER → 2024-12-03 07:04 | Outpatient (REF) | payer BC, SELFPAY | LOC: RAD 07:04 | PROVIDERS: ATTENDING PHYSICIAN Internal Medicine Hematology & Oncology; FAMILY PHYSICIAN Nurse Practitioner Family | DX: C18.7 Malignant neoplasm of sigmoid colon (principal); C78.7 Secondary malignant neoplasm of liver and intrahepatic bile duct; D50.9 Iron deficiency anemia, unspecified | CPT/HCPCS: 71260; 74177; Q9967 ==

== ENCOUNTER → 2024-12-17 07:39 | Outpatient (REF) | payer BC, SELFPAY ==
[2024-12-17 08:21] LABS: % Basophils 1.1 % (0-2); % Immature Granulocytes 0.7 % (0-0.5); % Lymphocytes 27.1 % (20.5-51.1); % Monocytes 10.4 % (1.7-9.3); % Neutrophils 51.7 % (42.2-75.2); Absolute Basophils 0.1 10^3/uL (0-0.2); Absolute Eosinophils 0.5 10^3/uL (0-0.7); Absolute Lymphocytes 1.5 10^3/uL (1.2-3.4); Absolute Monocytes 0.6 10^3/uL (0.1-0.6); Absolute Neutrophils 2.8 10^3/uL (1.4-6.5); Hematocrit 34.4 % (37.0-47.0); Hemoglobin 12.1 g/dL (12.0-16.0); Mean Corp Hgb Conc. 35.2 g/dL (33.0-37.0); Mean Corpuscular Hgb 31.2 pg (27.0-31.0); Mean Corpuscular Volume 88.7 fL (81.0-99.0); Mean Platelet Volume 9.8 fL (7.4-10.4); Nucleated Red Blood Cells % 0 %; Platelet Count 151 10^3/uL (130-400); Red Blood Cell Count 3.88 10^6/uL (4.20-5.40); White Blood Cell Count 5.5 10^3/uL (4.8-10.8)
[2024-12-17 10:39] LABS: ALT (SGPT) 53 U/L (0-35); AST (SGOT) 48 U/L (14-36); Albumin 3.7 g/dl (3.5-5.0); Alkaline Phosphatase 142 U/L (38-126); Blood Urea Nitrogen 7 mg/dl (7-17); Calcium 8.2 mg/dl (8.4-10.2); Carbon Dioxide 33 mmol/L (22-30); Chloride 103 mmol/L (98-107); Glucose 183 mg/dl (70-99); Potassium 2.8 mmol/L (3.5-5.1); Sodium 142 mmol/L (135-145); Total Bilirubin 1.9 mg/dl (0.2-1.3); Total Protein 5.9 g/dl (6.3-8.2); eGFR > 60.00
== END ==
LOC: REG 07:39
PROVIDERS: ATTENDING PHYSICIAN Internal Medicine Hematology & Oncology; FAMILY PHYSICIAN Nurse Practitioner Family
DX: C18.7 Malignant neoplasm of sigmoid colon (principal); C78.7 Secondary malignant neoplasm of liver and intrahepatic bile duct; D50.9 Iron deficiency anemia, unspecified
CPT/HCPCS: 36415; 80053; 85025

== ENCOUNTER → 2024-12-19 16:07 | Outpatient (REF) | payer BC, SELFPAY ==
[2024-12-19 11:14] LABS: Magnesium 1.3 mg/dl (1.6-2.3)
== END ==
LOC: OIDL 16:07
PROVIDERS: ATTENDING PHYSICIAN Internal Medicine Hematology & Oncology
DX: C18.7 Malignant neoplasm of sigmoid colon (principal); C78.7 Secondary malignant neoplasm of liver and intrahepatic bile duct; D50.9 Iron deficiency anemia, unspecified
CPT/HCPCS: 83735

== ENCOUNTER → 2025-01-07 07:42 | Outpatient (REF) | payer BC, SELFPAY ==
[2025-01-07 08:43] LABS: % Basophils 0.8 % (0-2); % Eosinophils 9.3 % (0-6); % Immature Granulocytes 0.3 % (0-0.5); % Lymphocytes 28.7 % (20.5-51.1); % Monocytes 11.8 % (1.7-9.3); % Neutrophils 49.1 % (42.2-75.2); Absolute Eosinophils 0.3 10^3/uL (0-0.7); Absolute Monocytes 0.4 10^3/uL (0.1-0.6); Absolute Neutrophils 1.8 10^3/uL (1.4-6.5); Hematocrit 32.7 % (37.0-47.0); Hemoglobin 11.4 g/dL (12.0-16.0); Mean Corp Hgb Conc. 34.9 g/dL (33.0-37.0); Mean Corpuscular Hgb 32.5 pg (27.0-31.0); Mean Corpuscular Volume 93.2 fL (81.0-99.0); Mean Platelet Volume 9.5 fL (7.4-10.4); Nucleated Red Blood Cells % 0 %; Platelet Count 179 10^3/uL (130-400); Red Blood Cell Count 3.51 10^6/uL (4.20-5.40); Red Cell Dist. Width 20.2 % (11.5-14.5); White Blood Cell Count 3.6 10^3/uL (4.8-10.8)
[2025-01-07 09:59] LABS: ALT (SGPT) 16 U/L (0-35); AST (SGOT) 24 U/L (14-36); Alkaline Phosphatase 93 U/L (38-126); Blood Urea Nitrogen 6 mg/dl (7-17); Calcium 9.1 mg/dl (8.4-10.2); Carbon Dioxide 24 mmol/L (22-30); Chloride 112 mmol/L (98-107); Glucose 161 mg/dl (70-99); Potassium 3.9 mmol/L (3.5-5.1); Sodium 143 mmol/L (135-145); Total Bilirubin 1.4 mg/dl (0.2-1.3); Total Protein 6.3 g/dl (6.3-8.2); eGFR > 60.00
== END ==
LOC: REG 07:42
PROVIDERS: ATTENDING PHYSICIAN Internal Medicine Hematology & Oncology; FAMILY PHYSICIAN Nurse Practitioner Family
DX: C18.7 Malignant neoplasm of sigmoid colon (principal); C78.7 Secondary malignant neoplasm of liver and intrahepatic bile duct; D50.9 Iron deficiency anemia, unspecified
CPT/HCPCS: 36415; 80053; 85025

== ENCOUNTER → 2025-01-28 07:17 | Outpatient (REF) | payer BC, SELFPAY ==
[2025-01-28 08:17] LABS: Hematocrit 32.5 % (37.0-47.0); Hemoglobin 11.4 g/dL (12.0-16.0); Mean Corp Hgb Conc. 35.1 g/dL (33.0-37.0); Mean Corpuscular Volume 96.2 fL (81.0-99.0); Nucleated Red Blood Cells % 0 %; Platelet Count 161 10^3/uL (130-400); Red Cell Dist. Width 15.9 % (11.5-14.5)
[2025-01-28 08:45] LABS: ALT (SGPT) 27 U/L (0-35); AST (SGOT) 33 U/L (14-36); Albumin 3.9 g/dl (3.5-5.0); Alkaline Phosphatase 114 U/L (38-126); Blood Urea Nitrogen 7 mg/dl (7-17); Calcium 8.9 mg/dl (8.4-10.2); Carbon Dioxide 27 mmol/L (22-30); Chloride 107 mmol/L (98-107); Glucose 151 mg/dl (70-99); Potassium 3.5 mmol/L (3.5-5.1); Sodium 142 mmol/L (135-145); Total Protein 6.2 g/dl (6.3-8.2); eGFR > 60.00
== END ==
LOC: REG 07:17
PROVIDERS: ATTENDING PHYSICIAN Internal Medicine Hematology & Oncology; FAMILY PHYSICIAN Nurse Practitioner Family
DX: C18.7 Malignant neoplasm of sigmoid colon (principal); C78.7 Secondary malignant neoplasm of liver and intrahepatic bile duct; D50.9 Iron deficiency anemia, unspecified
CPT/HCPCS: 36415; 80053; 85025

== ENCOUNTER → 2025-02-05 13:26 | Outpatient (REF) | payer BC, SELFPAY | LOC: RAD 13:26 | PROVIDERS: ATTENDING PHYSICIAN Internal Medicine Hematology & Oncology; FAMILY PHYSICIAN Nurse Practitioner Family | DX: C18.7 Malignant neoplasm of sigmoid colon (principal); C78.7 Secondary malignant neoplasm of liver and intrahepatic bile duct; D50.9 Iron deficiency anemia, unspecified | CPT/HCPCS: 71260; 74177; Q9967 ==

== ENCOUNTER → 2025-02-18 07:27 | Outpatient (REF) | payer BC, SELFPAY ==
[2025-02-18 08:15] LABS: Hematocrit 36.2 % (37.0-47.0); Hemoglobin 12.9 g/dL (12.0-16.0); Mean Corp Hgb Conc. 35.6 g/dL (33.0-37.0); Mean Corpuscular Volume 96.5 fL (81.0-99.0); Nucleated Red Blood Cells % 0 %; Platelet Count 161 10^3/uL (130-400); Red Cell Dist. Width 14.2 % (11.5-14.5)
[2025-02-18 08:48] LABS: ALT (SGPT) 29 U/L (0-35); AST (SGOT) 37 U/L (14-36); Albumin 4.1 g/dl (3.5-5.0); Alkaline Phosphatase 129 U/L (38-126); Blood Urea Nitrogen 6 mg/dl (7-17); Calcium 9.0 mg/dl (8.4-10.2); Carbon Dioxide 28 mmol/L (22-30); Chloride 108 mmol/L (98-107); Glucose 131 mg/dl (70-99); Potassium 3.9 mmol/L (3.5-5.1); Sodium 143 mmol/L (135-145); Total Protein 6.5 g/dl (6.3-8.2); eGFR > 60.00
== END ==
LOC: REG 07:27
PROVIDERS: ATTENDING PHYSICIAN Internal Medicine Hematology & Oncology
DX: C18.7 Malignant neoplasm of sigmoid colon (principal); C78.7 Secondary malignant neoplasm of liver and intrahepatic bile duct; D50.9 Iron deficiency anemia, unspecified
CPT/HCPCS: 36415; 80053; 85025

== ENCOUNTER → 2025-03-11 07:20 | Outpatient (REF) | payer BC, SELFPAY ==
[2025-03-11 08:43] LABS: Hematocrit 31.9 % (37.0-47.0); Hemoglobin 11.5 g/dL (12.0-16.0); Mean Corp Hgb Conc. 36.1 g/dL (33.0-37.0); Mean Corpuscular Volume 96.1 fL (81.0-99.0); Nucleated Red Blood Cells % 0 %; Platelet Count 109 10^3/uL (130-400); Red Cell Dist. Width 13.7 % (11.5-14.5)
[2025-03-11 09:13] LABS: ALT (SGPT) 33 U/L (0-35); AST (SGOT) 49 U/L (14-36); Albumin 3.8 g/dl (3.5-5.0); Alkaline Phosphatase 151 U/L (38-126); Blood Urea Nitrogen 9 mg/dl (7-17); Calcium 8.8 mg/dl (8.4-10.2); Carbon Dioxide 27 mmol/L (22-30); Chloride 108 mmol/L (98-107); Glucose 162 mg/dl (70-99); Potassium 4.1 mmol/L (3.5-5.1); Sodium 140 mmol/L (135-145); Total Protein 6.3 g/dl (6.3-8.2); eGFR > 60.00
== END ==
LOC: REG 07:20
PROVIDERS: ATTENDING PHYSICIAN Internal Medicine Hematology & Oncology; FAMILY PHYSICIAN Nurse Practitioner Family
DX: C18.7 Malignant neoplasm of sigmoid colon (principal); C78.7 Secondary malignant neoplasm of liver and intrahepatic bile duct; D50.9 Iron deficiency anemia, unspecified
CPT/HCPCS: 36415; 80053; 85025

== ENCOUNTER → 2025-03-19 07:30 | Outpatient (REF) | payer BC, SELFPAY ==
[2025-03-19 07:55] LABS: Hematocrit 34.4 % (37.0-47.0); Hemoglobin 11.8 g/dL (12.0-16.0); Mean Corp Hgb Conc. 34.3 g/dL (33.0-37.0); Mean Corpuscular Volume 98.0 fL (81.0-99.0); Nucleated Red Blood Cells % 0 %; Platelet Count 111 10^3/uL (130-400); Red Cell Dist. Width 13.3 % (11.5-14.5)
== END ==
LOC: REG 07:30
PROVIDERS: ATTENDING PHYSICIAN Internal Medicine Hematology & Oncology; FAMILY PHYSICIAN Nurse Practitioner Family
DX: C18.7 Malignant neoplasm of sigmoid colon (principal); C78.7 Secondary malignant neoplasm of liver and intrahepatic bile duct; D50.9 Iron deficiency anemia, unspecified
CPT/HCPCS: 36415; 85025

== ENCOUNTER → 2025-04-09 07:59 | Outpatient (REF) | payer BC, SELFPAY ==
[2025-04-09 09:26] LABS: Hematocrit 31.4 % (37.0-47.0); Hemoglobin 11.4 g/dL (12.0-16.0); Mean Corp Hgb Conc. 36.3 g/dL (33.0-37.0); Mean Corpuscular Volume 91.0 fL (81.0-99.0); Nucleated Red Blood Cells % 0 %; Platelet Count 187 10^3/uL (130-400); Red Cell Dist. Width 13.2 % (11.5-14.5)
[2025-04-09 09:43] LABS: ALT (SGPT) 18 U/L (0-35); AST (SGOT) 28 U/L (14-36); Albumin 3.9 g/dl (3.5-5.0); Alkaline Phosphatase 102 U/L (38-126); Blood Urea Nitrogen 8 mg/dl (7-17); Calcium 9.3 mg/dl (8.4-10.2); Carbon Dioxide 27 mmol/L (22-30); Chloride 106 mmol/L (98-107); Glucose 137 mg/dl (70-99); Potassium 3.1 mmol/L (3.5-5.1); Sodium 140 mmol/L (135-145); Total Protein 6.7 g/dl (6.3-8.2); eGFR > 60.00
== END ==
LOC: REG 07:59
PROVIDERS: ATTENDING PHYSICIAN Internal Medicine Hematology & Oncology; FAMILY PHYSICIAN Nurse Practitioner Family
DX: C18.7 Malignant neoplasm of sigmoid colon (principal); C78.7 Secondary malignant neoplasm of liver and intrahepatic bile duct; D50.9 Iron deficiency anemia, unspecified
CPT/HCPCS: 36415; 80053; 85025

== ENCOUNTER → 2025-04-15 07:41 | Outpatient (REF) | payer BC, SELFPAY ==
[2025-04-15 09:55] LABS: ALT (SGPT) 52 U/L (0-35); AST (SGOT) 67 U/L (14-36); Albumin 3.9 g/dl (3.5-5.0); Alkaline Phosphatase 133 U/L (38-126); Blood Urea Nitrogen 9 mg/dl (7-17); Calcium 8.6 mg/dl (8.4-10.2); Carbon Dioxide 32 mmol/L (22-30); Chloride 104 mmol/L (98-107); Glucose 132 mg/dl (70-99); Potassium 3.8 mmol/L (3.5-5.1); Sodium 141 mmol/L (135-145); Total Protein 6.4 g/dl (6.3-8.2); eGFR > 60.00
== END ==
LOC: REG 07:41
PROVIDERS: ATTENDING PHYSICIAN Internal Medicine Hematology & Oncology; FAMILY PHYSICIAN Nurse Practitioner Family
DX: C18.7 Malignant neoplasm of sigmoid colon (principal); C78.7 Secondary malignant neoplasm of liver and intrahepatic bile duct; D50.9 Iron deficiency anemia, unspecified
CPT/HCPCS: 36415; 80053

== ENCOUNTER → 2025-04-30 07:28 | Outpatient (REF) | payer BC, SELFPAY ==
[2025-04-30 08:25] LABS: Hematocrit 31.0 % (37.0-47.0); Hemoglobin 11.1 g/dL (12.0-16.0); Mean Corp Hgb Conc. 35.8 g/dL (33.0-37.0); Mean Corpuscular Volume 95.4 fL (81.0-99.0); Nucleated Red Blood Cells % 0 %; Platelet Count 173 10^3/uL (130-400); Red Cell Dist. Width 15.6 % (11.5-14.5)
[2025-04-30 09:06] LABS: ALT (SGPT) 28 U/L (0-35); AST (SGOT) 32 U/L (14-36); Albumin 4.2 g/dl (3.5-5.0); Alkaline Phosphatase 110 U/L (38-126); Blood Urea Nitrogen 11 mg/dl (7-17); Calcium 9.3 mg/dl (8.4-10.2); Carbon Dioxide 22 mmol/L (22-30); Chloride 110 mmol/L (98-107); Glucose 114 mg/dl (70-99); Potassium 3.6 mmol/L (3.5-5.1); Sodium 140 mmol/L (135-145); Total Protein 6.8 g/dl (6.3-8.2); eGFR > 60.00
== END ==
LOC: REG 07:28
PROVIDERS: ATTENDING PHYSICIAN Internal Medicine Hematology & Oncology; FAMILY PHYSICIAN Nurse Practitioner Family
DX: C18.7 Malignant neoplasm of sigmoid colon (principal); C78.7 Secondary malignant neoplasm of liver and intrahepatic bile duct; D50.9 Iron deficiency anemia, unspecified
CPT/HCPCS: 36415; 80053; 85025

== ENCOUNTER → 2025-05-06 13:25 | Outpatient (REF) | payer BC, SELFPAY | LOC: RAD 13:25 | PROVIDERS: ATTENDING PHYSICIAN Internal Medicine Hematology & Oncology; FAMILY PHYSICIAN Nurse Practitioner Family | DX: C18.7 Malignant neoplasm of sigmoid colon (principal); C78.7 Secondary malignant neoplasm of liver and intrahepatic bile duct; D50.9 Iron deficiency anemia, unspecified | CPT/HCPCS: 71260; 74177; Q9967 ==

== ENCOUNTER → 2025-05-21 07:01 | Outpatient (REF) | payer BC, SELFPAY ==
[2025-05-21 07:29] LABS: Hematocrit 30.4 % (37.0-47.0); Hemoglobin 10.5 g/dL (12.0-16.0); Mean Corp Hgb Conc. 34.5 g/dL (33.0-37.0); Mean Corpuscular Volume 99.3 fL (81.0-99.0); Nucleated Red Blood Cells % 0 %; Platelet Count 142 10^3/uL (130-400); Red Cell Dist. Width 16.7 % (11.5-14.5)
[2025-05-21 08:09] LABS: ALT (SGPT) 54 U/L (0-35); AST (SGOT) 48 U/L (14-36); Albumin 4.1 g/dl (3.5-5.0); Alkaline Phosphatase 129 U/L (38-126); Blood Urea Nitrogen 10 mg/dl (7-17); Calcium 9.1 mg/dl (8.4-10.2); Carbon Dioxide 29 mmol/L (22-30); Chloride 105 mmol/L (98-107); Glucose 123 mg/dl (70-99); Potassium 3.8 mmol/L (3.5-5.1); Sodium 139 mmol/L (135-145); Total Protein 6.8 g/dl (6.3-8.2); eGFR > 60.00
== END ==
LOC: REG 07:01
PROVIDERS: ATTENDING PHYSICIAN Internal Medicine Hematology & Oncology; FAMILY PHYSICIAN Nurse Practitioner Family
DX: C18.7 Malignant neoplasm of sigmoid colon (principal); C78.7 Secondary malignant neoplasm of liver and intrahepatic bile duct; D50.9 Iron deficiency anemia, unspecified
CPT/HCPCS: 36415; 80053; 85025

== ENCOUNTER → 2025-06-17 19:59 | Outpatient (REF) | payer BC, SELFPAY | LOC: MRI 19:59 | PROVIDERS: ATTENDING PHYSICIAN Surgery; FAMILY PHYSICIAN Nurse Practitioner Family | DX: C78.7 Secondary malignant neoplasm of liver and intrahepatic bile duct (principal) | CPT/HCPCS: 74183; A9575 ==

== ENCOUNTER → 2025-06-18 07:15 | Outpatient (REF) | payer BC, SELFPAY ==
[2025-06-18 08:01] LABS: Hematocrit 37.2 % (37.0-47.0); Hemoglobin 12.6 g/dL (12.0-16.0); Mean Corp Hgb Conc. 33.9 g/dL (33.0-37.0); Mean Corpuscular Volume 100.8 fL (81.0-99.0); Nucleated Red Blood Cells % 0 %; Platelet Count 181 10^3/uL (130-400); Red Cell Dist. Width 13.4 % (11.5-14.5)
[2025-06-18 08:48] LABS: ALT (SGPT) 34 U/L (0-35); AST (SGOT) 32 U/L (14-36); Albumin 4.9 g/dl (3.5-5.0); Alkaline Phosphatase 139 U/L (38-126); Blood Urea Nitrogen 16 mg/dl (7-17); Calcium 9.7 mg/dl (8.4-10.2); Carbon Dioxide 27 mmol/L (22-30); Chloride 104 mmol/L (98-107); Glucose 120 mg/dl (70-99); Potassium 5.3 mmol/L (3.5-5.1); Sodium 138 mmol/L (135-145); Total Protein 7.9 g/dl (6.3-8.2); eGFR > 60.00
== END ==
LOC: REG 07:15
PROVIDERS: ATTENDING PHYSICIAN Internal Medicine Hematology & Oncology; FAMILY PHYSICIAN Nurse Practitioner Family
DX: C18.7 Malignant neoplasm of sigmoid colon (principal); C78.7 Secondary malignant neoplasm of liver and intrahepatic bile duct; D50.9 Iron deficiency anemia, unspecified
CPT/HCPCS: 36415; 80053; 85025

== ENCOUNTER → 2025-07-10 07:22 | Outpatient (REF) | payer BC, SELFPAY ==
[2025-07-10 08:54] LABS: Hematocrit 30.7 % (37.0-47.0); Hemoglobin 10.7 g/dL (12.0-16.0); Mean Corp Hgb Conc. 34.9 g/dL (33.0-37.0); Mean Corpuscular Volume 99.4 fL (81.0-99.0); Nucleated Red Blood Cells % 0 %; Platelet Count 155 10^3/uL (130-400); Red Cell Dist. Width 14.1 % (11.5-14.5)
[2025-07-10 10:32] LABS: ALT (SGPT) 32 U/L (0-35); AST (SGOT) 46 U/L (14-36); Albumin 4.3 g/dl (3.5-5.0); Alkaline Phosphatase 127 U/L (38-126); Blood Urea Nitrogen 15 mg/dl (7-17); Calcium 9.5 mg/dl (8.4-10.2); Carbon Dioxide 25 mmol/L (22-30); Chloride 107 mmol/L (98-107); Glucose 115 mg/dl (70-99); Potassium 5.2 mmol/L (3.5-5.1); Sodium 138 mmol/L (135-145); Total Protein 7.1 g/dl (6.3-8.2); eGFR > 60.00
== END ==
LOC: REG 07:22
PROVIDERS: ATTENDING PHYSICIAN Internal Medicine Hematology & Oncology; FAMILY PHYSICIAN Nurse Practitioner Family
DX: C18.7 Malignant neoplasm of sigmoid colon (principal); C78.7 Secondary malignant neoplasm of liver and intrahepatic bile duct; D50.9 Iron deficiency anemia, unspecified
CPT/HCPCS: 36415; 80053; 85025

== ENCOUNTER → 2025-07-15 07:41 | Outpatient (REF) | payer BC, SELFPAY | LOC: PET 07:41 | PROVIDERS: ATTENDING PHYSICIAN Internal Medicine Hematology & Oncology | DX: C78.7 Secondary malignant neoplasm of liver and intrahepatic bile duct (principal); C18.7 Malignant neoplasm of sigmoid colon | CPT/HCPCS: 78815; A9552 ==